=== PATIENT | male | born 1955 | race Caucasian/White ===

== ENCOUNTER 2016-09-04 03:10 | Emergency (ER) | payer MEDICARE, OTHER ==
[2016-09-04] MEDS ORDERED: IOPAMIDOL 370 (76%) 100 ML VIAL IV ONE (03:11)
[2016-09-04] MEDS ORDERED: ALBUTEROL NEB 2.5 MG/3 ML VIAL.NEB NEB ONE (03:14)
[2016-09-04 03:38] LABS: ABSOLUTE NEUTROPHIL COUNT 5.9 K/mm3 (1.8-7.7); BASO # 0.1 K/mm3 (0.0-0.2); BASO % 0.6 % (0.2-1.0); EOS # 0.2 (0.0-0.5); EOS % 2.4 % (0.9-2.9); HEMATOCRIT 53.3 % (32.0-52.0); IMM NEUT% 0.5 % (0-1); LYMPH # 1.8 (1.0-4.8); LYMPH % 22.1 % (15-45); MEAN CORPUSCULAR HEMOGLOBIN 29.7 pg (27.0-31.0); MEAN CORPUSCULAR HGB CONC 31.9 g/dl (33.0-37.0); MEAN PLATELET VOLUME 12.3 fl (7.4-10.4); MONO # 0.3 (0.0-0.8); MONO % 3.2 % (4-12); NEUT % 71.2 % (43-75); PLATELET COUNT 122 K/mm3 (130-400)
[2016-09-04 03:45] LABS: VENOUS BLOOD GAS BASE EXCESS -8.9 mmol/L (-2.0-2.0); VENOUS BLOOD GAS HCO3 19.2 mmol/L (22.0-27.0)
[2016-09-04 03:46] LABS: INR 1.1; PARTIAL THROMBOPLASTIN TIME 21.9 SECONDS (24.5-33.0); PROTHROMBIN TIME 11.7 SECONDS (9.3-11.4)
[2016-09-04] MEDS ORDERED: IPRATROPIUM BROMIDE 0.5 MG/2.5 ML DOSE ONE ×2 (03:46→04:03)
[2016-09-04] MEDS ORDERED: ALBUTEROL SULFATE 5MG/ML INHALANT 20 ML BOT ONE (03:46)
[2016-09-04 03:51] LABS: ALB/GLOB RATIO 1.5 (>1.0); ALBUMIN 3.8 gm/dL (3.5-5.7); CALCIUM 8.6 mg/dL (8.6-10.3)
[2016-09-04] MEDS ORDERED: Heparin Sodium 5000 unit/0.5ml syringe ONE (05:59)
[2016-09-04] MEDS ORDERED: HEPARIN SODIUM PREMIX 500 ML IV ONE (05:59)
--- NOTE | 2016-09-04 08:25 | CT ---
EXAMINATION: CT angiography of the thorax.CTA CHEST FOR PE INDICATION: Shortness of breath. Prior history of pulmonary embolus in 04/05/2016 COMPARISON: None. TECHNIQUE: Helical scan mode CT of the Thorax after uneventful intravenous contrast administration of 80 ml of Isovue-370. Imaging device: [employer] multidetector CT scan. Helically acquired stacked images were reviewed in the axial, sagittal and coronal planes. Additional 3-D postprocessing was performed and reconstructed images were acquired at the 3D [employer] workstation and reviewed as well. FINDINGS: The bolus is of good quality for diagnosis of pulmonary embolism. There are no pulmonary arterial filling defects. No vascular malformations are identified. The thoracic aorta exhibits atherosclerosis with mild ectasia. There is no dissection or pulmonary arteries are well calcified throughout the visualized segments. The lung parenchyma: There is diffuse groundglass opacity with intra and interlobular septal thickening. Moderate groundglass attenuation is noted in the perihilar distributions as well. No lobar consolidation is identified. No emphysematous change or gross mass is detected. Pleural effusion: There is [id number] bilateral pleural effusions.: Mediastinum: There is no axillary, mediastinal or hilar adenopathy. The heart and great vessels opacify normally. Osseus structures: No gross osteolytic or blastic lesions are identified. Mild wedge deformities involving midthoracic vertebra. Endplate Schmorl's node changes are noted at multiple segments Soft tissues: within normal limits Limited evaluation of the abdomen on this arterial phase injection reveals: There are 2 left adrenal adenomas. The appendix is a 1.6 cm adenoma with a measurement of -12 Hounsfield units. The lateral/anterior limb there is a 2.5 cm adenoma measuring -0.5 Hounsfield in density in the right adrenal exhibit some hypertrophic appearance. There is a 2 cm cyst in the lateral segment of the left lobe of liver. IMPRESSION: 1. Negative for pulmonary embolism. 2. Findings compatible pulmonary edema/CHF. There are bilateral pleural effusions as well. Secondary less likely possibility would include opportunistic infections/viral pneumonia. 3. Atherosclerosis. 4. 2. Left adrenal adenomas. 5. Spondylosis changes thoracic vertebra. 6. Hepatic cyst. Findings were communicated by [facility] to the emergency department at: 5:13 AM 09/04/2016
--- NOTE | 2016-09-04 08:32 | RAD ---
EXAMINATION : CHEST-AP BEDSIDE HISTORY: Shortness of breath. History of pulmonary embolus. COMPARISONS: None FINDINGS: There is borderline cardiomegaly. Aortic ectasia is noted. There are prominent bronchovascular markings with coarsened reticular nodular opacities and diffuse hazy groundglass opacity as well. Slight asymmetry involves the right apical distribution. Small bilateral pleural effusions are noted. The osseous structures are within normal limits. IMPRESSION: Findings compatible with CHF/pulmonary edema. Please note if infectious etiology though considered less likely may give a similar appearance. There are small bilateral pleural effusions.
== END 2016-09-04 09:17 | disposition home or self-care (01) ==
LOC: ED 03:10
DX: J44.1 Chronic obstructive pulmonary disease with (acute) exacerbation (principal); I24.9 Acute ischemic heart disease, unspecified; I10 Essential (primary) hypertension; I25.2 Old myocardial infarction; Z86.711 Personal history of pulmonary embolism; Z79.01 Long term (current) use of anticoagulants; F17.210 Nicotine dependence, cigarettes, uncomplicated
CPT/HCPCS: 83880; 82803; 85025; 80053; 85730; 85610; 84484 ×2; 71010; 71275; 94640; 94660; 94644; 99285 ×2; 96365; 96366 ×2; 93005; J7645 ×2; J1644; Q9967